=== PATIENT | female | born 1950 | race Two or more races ===

== ENCOUNTER 2020-07-23 22:25 | Emergency (ER) | payer SELFPAY ==
[~2020-07-23] VITALS: Ht 165.1 cm; Wt 68.0 kg
--- NOTE | 2020-07-23 22:40 | NUR ---
ED Nurse Note: Pt brought in by ambulnace 63 c/o dry throat. Per EMS, pt went to urgent care for same s/s and was treated. Per EMS, no truama to neck, throat, no difficulty breathing, no damage to airway. changed into gown; attached to monitor. ao4. vss. all safety measures met.
--- NOTE | 2020-07-23 22:40 | Emergency Room Report ---
History of Present Illness General Chief Complaint: Sore Throat Present Illness HPI 70-year-old female here with right-sided neck pain. Patient says that she has been experiencing this pain for 2 days. Is located only on the right side of her neck and is worsened when she rotates her head from side to side and flexes and extends her neck. Is never had this before. She took Tylenol and had some resolution of her pain but says it persisted. She went to urgent care and they gave her more Tylenol. Patient is deaf and front worker was used at the bedside. Allergies: Coded Allergies: No Known Allergies (Unverified , 07/23/20) COVID-19 Screening Contact w/high risk pt: No Experienced COVID-19 symptoms?: No COVID-19 Testing performed ADOPTION WORKER: No Nursing Documentation-PMH Hx Hypertension: Yes Hx Diabetes: Yes Review of Systems All Other Systems: negative except mentioned in HPI Physical Exam Vital Signs Date Time Temp Pulse Resp B/P (MAP) Pulse Ox O2 Delivery O2 Flow Rate FiO2 07/23/20 22:32 98.4 113 16 150/85 (106) 99 Room Air Sp02 EP Interpretation: reviewed, normal General Appearance: no apparent distress, alert, non-toxic Head: normocephalic, atraumatic Eyes: bilateral eye normal inspection, bilateral eye PERRL ENT: hearing grossly normal, normal pharynx, no angioedema, normal voice Neck: full range of motion, supple/symm/no masses, other - Tenderness on palpation of the right sternocleidomastoid muscle. No overlying skin changes. No masses Respiratory: chest non-tender, lungs clear, normal breath sounds, speaking full sentences Cardiovascular #1: regular rate, rhythm, no edema Cardiovascular #2: 2+ carotid (R), 2+ carotid (L), 2+ radial (R), 2+ radial (L) , 2+ dorsalis pedis (R), 2+ dorsalis pedis (L) Gastrointestinal: normal bowel sounds, non tender, soft, non-distended, no guarding, no rebound Rectal: deferred Genitourinary: normal inspection, no CVA tenderness Musculoskeletal: back normal, normal range of motion, calf tenderness, gait/ station normal, non-tender Neurologic: alert, motor strength/tone normal, oriented x3, sensory intact, responsive, speech normal Psychiatric: judgement/insight normal, memory normal, mood/affect normal, no suicidal/homicidal ideation Reflexes: 3+ bicep (R), 3+ bicep (L), 3+ tricep (R), 3+ tricep (L), 3+ knee (R) , 3+ knee (L) Lymphatic: no adenopathy Medical Decision Making Diagnostic Impression: Primary Impression: Muscle spasm ER Course Laboratory Tests Test 07/23/20 22:44 White Blood Count 11.3 K/UL (4.8-10.8) H Red Blood Count 4.65 M/UL (4.20-5.40) Hemoglobin 14.0 G/DL (12.0-16.0) Hematocrit 41.0 % (37.0-47.0) Mean Corpuscular Volume 88 FL (80-99) Mean Corpuscular Hemoglobin 30.1 PG (27.0-31.0) Mean Corpuscular Hemoglobin Concent 34.2 G/DL (32.0-36.0) Red Cell Distribution Width 12.3 % (11.6-14.8) Platelet Count 188 K/UL (150-450) Mean Platelet Volume 11.8 FL (6.5-10.1) H Neutrophils (%) (Auto) 71.1 % (45.0-75.0) Lymphocytes (%) (Auto) 22.1 % (20.0-45.0) Monocytes (%) (Auto) 4.7 % (1.0-10.0) Eosinophils (%) (Auto) 1.1 % (0.0-3.0) Basophils (%) (Auto) 1.0 % (0.0-2.0) Sodium Level 140 MMOL/L (136-145) Potassium Level 3.3 MMOL/L (3.5-5.1) L Chloride Level 100 MMOL/L (98-107) Carbon Dioxide Level 30 MMOL/L (21-32) Anion Gap 10 mmol/L (5-15) Blood Urea Nitrogen 20 mg/dL (7-18) H Creatinine 1.0 MG/DL (0.55-1.30) Estimated Glomerular Filtration Rate 55.1 mL/min (>60) Glucose Level 184 MG/DL (74-106) H Calcium Level 10.5 MG/DL (8.5-10.1) H Total Bilirubin 0.3 MG/DL (0.2-1.0) Aspartate Amino Transferase (AST) 22 U/L (15-37) Alanine Aminotransferase (ALT) 41 U/L (12-78) Alkaline Phosphatase 113 U/L (46-116) Total Protein 8.5 G/DL (6.4-8.2) H Albumin 4.5 G/DL (3.4-5.0) Globulin 4.0 g/dL Albumin/Globulin Ratio 1.1 (1.0-2.7) 70-year-old female here with unilateral neck pain. Patient was hemodynamically stable in the emergency department. She had pain on palpation of the right sternocleidomastoid muscle near the insertion site of the right clavicle. She had no obvious skin changes. No masses. No lymphadenopathy. This appears to be a muscle spasm. Patient did not have any evidence of torticollis that she was able to range the head normally, but she was suffering focal pain at the sternocleidomastoid clavicle insertion site when she rotated her head from side to side. She was given Toradol and muscle relaxer in the emergency department with good resolution of her pain. Given prescription for muscle relaxer and pain medication. We will follow-up with primary care. Discharged in good condition. Last Vital Signs Date Time Temp Pulse Resp B/P (MAP) Pulse Ox O2 Delivery O2 Flow Rate FiO2 07/23/20 22:32 98.4 113 16 150/85 (106) 99 Room Air Scripts Acetaminophen* (ACETAMINOPHEN 325MG TABLET*) 325 Mg Tablet 650 MG ORAL Q4H PRN for For Pain, #20 TAB Prov: Brenden Breaux M.D. 07/23/20 Methocarbamol* (ROBAXIN-750*) 750 Mg Tablet 750 MG PO TID, #21 TAB 0 Refills Prov: Brenden Breaux M.D. 07/23/20 Brenden Breaux M.D. Jul 23, 2020 22:40
--- NOTE | 2020-07-23 22:41 | NUR ---
ED Nurse Note: caregiver at bedside. per care aid, patient is deaf and able to communicate through reading lips. discussed plan of care; patient alert lucid and able to communicate through reading lips in both frisian and trinidadian; states understanding and willingness to continue with care.
[2020-07-23 22:44] VITALS: BP 150/85
--- NOTE | 2020-07-23 22:44 | NUR ---
ED Nurse Note: iv access established. blood collected; sent down to lab.
[2020-07-23] MEDS ORDERED: Ketorolac 30mg Inj IV ONE (22:45)
[2020-07-23 23:20] LABS: EOSINOPHILS % (AUTO) 1.1 % (0.0-3.0); LYMPHOCYTES % (AUTO) 22.1 % (20.0-45.0); MEAN CORPUSCULAR VOLUME 88 FL (80-99); MONOCYTES % (AUTO) 4.7 % (1.0-10.0); NEUTROPHILS % (AUTO) 71.1 % (45.0-75.0); PLATELET COUNT 188 K/UL (150-450); RED BLOOD COUNT 4.65 M/UL (4.20-5.40); RED CELL DISTRIBUTION WIDTH 12.3 % (11.6-14.8); WHITE BLOOD COUNT 11.3 K/UL (4.8-10.8)
[2020-07-23 23:30] LABS: ANION GAP 10 mmol/L (5-15); BLOOD UREA NITROGEN 20 mg/dL (7-18); CALCIUM 10.5 MG/DL (8.5-10.1); CARBON DIOXIDE 30 MMOL/L (21-32); CHLORIDE 100 MMOL/L (98-107); POTASSIUM 3.3 MMOL/L (3.5-5.1); SODIUM 140 MMOL/L (136-145)
[2020-07-23 23:35] LABS: ALANINE AMINOTRANSFERASE 41 U/L (12-78); ALBUMIN 4.5 G/DL (3.4-5.0); ALBUMIN/GLOBULIN RATIO 1.1 (1.0-2.7); ALKALINE PHOSPHATASE 113 U/L (46-116); ASPARTATE AMINO TRANSFERASE 22 U/L (15-37); BILIRUBIN,TOTAL 0.3 MG/DL (0.2-1.0)
[2020-07-23] MEDS ORDERED: Methocarbamol 500mg tab ORAL ONE (23:45)
[2020-07-23] MEDS ORDERED: ACETAMINOPHEN325 M1 ORAL (23:57)
[2020-07-23] MEDS ORDERED: ROBAXIN-750750 MG PO (23:57)
[2020-07-24 00:04] VITALS: BP 134/81
--- NOTE | 2020-07-24 00:04 | NUR ---
ER DISCHARGE NOTE: Patient is cleared to be discharged per ERMD, pt is aox4, on room air, with stable vital signs. pt was given dc and prescription instructions, pt was able to verbalize understanding, pt id band and iv site removed without complications. pt is able to ambulate with steady gait. pt took all belongings.
== END 2020-07-24 00:05 | disposition home or self-care (01) ==
LOC: EDBD 22:25 → EMR 22:50
DX: M62.838 Other muscle spasm (principal); E11.9 Type 2 diabetes mellitus without complications; I10 Essential (primary) hypertension
CPT/HCPCS: 36415; 80053; 85025; 96374; 99284; J1885